=== PATIENT | male | born 1990 | race Caucasian/White ===

== ENCOUNTER 2024-04-22 14:45 | Emergency (ER) | payer BC, SELFPAY ==
[2024-04-22 14:46] VITALS: BP 138/84; PULSE 107; RESP 14; TEMP 36.6; O2SAT 98; BMI 42.7
--- NOTE | 2024-04-22 15:27 | ED.VIS.LOWEX ---
HPI History of Present Illness Chief Complaint: Lower Extremity Injury Narrative Narrative: 33-year-old male presenting with lower back, left hip and left femur pain. 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 He denies head injury or LOC. He states he was able to get up and walk but it was very painful. Patient is not on any blood thinners. Patient states that the pain that he feels starts in his lower back and he notes it is also in the left hip. When he moves his leg it radiates both medially and laterally. He denies numbness or tingling. PFSH PFSH Medical History no medical history Home Medications ?Medication ?Instructions ?Recorded ?Last Taken ?Type hydrocodone-acetaminophen 5-325mg 1 tab PO Q6H PRN PRN Pain 3 days 04/22/24 Unknown Rx 5mg-325mg #12 TABLETS Allergy/AdvReac Type Severity Reaction Status Date / Time No Known Allergies Allergy Verified 04/22/24 14:48 Surgical History no surgical history Social History Smoking Status: Never smoker ROS ROS ED Constitutional Constitutional ED: Denies chills, fever(s) or sweats Eyes Eyes: Denies blurry vision or change in vision ENT ENT ED: Denies ear pain or sore throat Cardiovascular Cardiovascular: Denies chest pain, palpitations or racing heartbeat Respiratory/Chest Respiratory/Chest: Denies cough, dyspnea or sputum Gastrointestinal Gastrointestinal: Denies abdominal pain, constipation, diarrhea, nausea or vomiting Genitourinary Genitourinary ED: Denies dysuria, hematuria or urinary frequency Musculoskeletal Musculoskeletal: Reports back pain and other Details: Right hip and leg pain ; Denies arthralgias, myalgias or neck pain Integumentary Denies abscess, Abrasions or rash Neurologic Neurologic: Denies headache(s), paresthesias or weakness Psychiatric Psychiatric: Denies anxiety, depression, suicidal ideation or suicidal thoughts Endocrine Endocrinology: Denies polydipsia or polyuria EXAM Physical Exam Const Vital Signs: 04/22/24 14:46 04/22/24 16:46 04/22/24 18:00 Temperature 98 F Temperature Source Temporal Pulse Rate 107 H 70 97 Respiratory Rate 14 17 17 Blood Pressure 138/84 H 132/68 H 144/80 H Blood Pressure Mean 102 89 101 Pulse Ox 98 99 99 Oxygen Delivery Method Room Air Room Air Room Air Positive well nourished General Appearance ED: NAD HEENT Reports moist mucous membranes Eyes PERRL Resp normal respiratory effort and no retractions Cardio regular rate and regular rhythm GI non-tender and non-distended Back/Spine Back/Spine Narrative: Tenderness to palpation of the lumbar spine midline at the level of L4-L5 without step-off or deformity. No bruising. Or rashes or abrasion. Extremity Extremity Narrative: There is tenderness to palpation noted on the left hip and gluteal region. Patient is able to flex his hip off the bed. From his side he is able to abduct his leg as well. There is tenderness of the greater trochanter as well as the mid thigh medially and laterally. Neuro oriented x3 and CN's II-XII intact bilaterally Sensorium / Orientation: alert Psych mental status grossly normal MDM MDM MDM Narrative Medical decision making narrative: 33-year-old male presenting with left hip pain. He also has pain in the lower back and femur area. He was able to ambulate. He states it was very painful. Differential includes lumbar spinal fracture, pelvic fracture, acetabular fracture, hip fracture, femur fracture. Patient fell from 4 and half feet onto the side of the truck and then an additional 5 feet to the ground. He is given Bayard for pain. Will obtain CT images of the lumbar spine, pelvis, hip, femur. CT of the lumbar spine, hip, femur all negative. Offered the patient crutches for home he declines. I will write prescription for Bayard for pain. Return precautions were discussed. Impression: 1. Fall 2. Lumbar contusion 3. left hip contusion Lab Data Attestation: I reviewed the patient's lab results. Radiography Diagnostic Testing: Clinical Impression(s) from Imaging Studies Lower Extremity CT 04/22/24 15:35 IMPRESSION: No acute bony abnormality or significant arthropathy. Electronically Signed: Sea Johnson MD at 17:53 EDT , Lumbar Spine CT 04/22/24 15:45 IMPRESSION: Unremarkable study. Electronically Signed: Sea Johnson MD at 18:08 EDT , Pelvis CT 04/22/24 15:45 IMPRESSION: Normal unenhanced CT of the pelvis. Electronically Signed: Dwight Green MD at 18:49 EDT , Discharge Plan Triage Chief Complaint: Lower Extremity Injury ED Provider: Joshua De La Vega Dx/Rx/DC Orders Instructions: ED Back Contusion, ED Hip Contusion Prescriptions: New hydrocodone-acetaminophen 5-325 mg tablet 1 tab PO Q6H PRN PRN (Reason: Pain) 3 Days Qty: 12 0RF Primary Care Provider: Carmelina Perla Referrals: Carmelina Perla PA [Primary Care Provider] - Print Language: Icelandic Disposition Disposition: Home, Self Care
[2024-04-22] MEDS: HYDROcodone Bitartrate/Apap 5/325 Tablet PO (15:32)
--- NOTE | 2024-04-22 15:35 | CT_ITS ---
CT LEFT LOWER EXTREMITY WITH 3-D IMAGING CLINICAL INDICATION: pain TECHNIQUE: Axial CT images of the LEFT lower extremity was performed without IV contrast material. Coronal and sagittal reformats were provided. The protocol utilizes one or more of the following dose reduction techniques: automated exposure control, adjustment of mA and/or kV according to patient size,and/or use of iterative reconstruction technique. RADIATION DOSAGE (If Supplied By Facility): CTDIvol = ( 30.50 ) mGy, DLP = ( 1709.51 ) mGycm COMPARISON: No relevant prior comparison study available FINDINGS: Bones: Osseous structures are normal without evidence of fracture or dislocation. No lytic or blastic osseous masses. Soft Tissues: The deep soft tissue structures are unremarkable. The superficial soft tissues are unremarkable without evidence of edema, hematoma, or foreign body. CT/Extremity Lower without Contra IMPRESSION: No acute bony abnormality or significant arthropathy. Electronically Signed: Sea Johnson MD at 17:53 EDT ,
--- NOTE | 2024-04-22 15:45 | CT_ITS ---
INDICATION: pain EXAMINATION: CT LUMBAR SPINE - CT Spine Lumbar W/O Contrast Injection TECHNIQUE: Helically acquired images were obtained of the lumbar spine. 2D reformats were reviewed. A radiation dose optimization technique was used for this scan. The protocol utilizes one or more of the following dose reduction techniques: automated exposure control, adjustment of mA and/or kV according to patient size,and/or use of iterative reconstruction technique. IV Contrast dosage and agent: None. RADIATION DOSAGE (If Supplied By Facility): CTDIvol = ( 33.30 ) mGy, DLP = ( 1142.26 ) mGycm COMPARISON: No relevant prior comparison study available FINDINGS: VERTEBRAE: No acute fracture. No discrete lytic or blastic abnormality observed. Normal alignment. DISCS and SPINAL CANAL: Disc heights are preserved. No significant stenosis. VISUALIZED ABDOMEN: Visualized abdominal aorta is not dilated. CT/Spine Lumbar without Contrast IMPRESSION: Unremarkable study. Electronically Signed: Sea Johnson MD at 18:08 EDT ,
--- NOTE | 2024-04-22 15:45 | CT_ITS ---
STUDY: CT PELVIS WITHOUT CONTRAST REASON FOR EXAM: Male, 33 years old. pain RADIATION DOSAGE (If Supplied By Facility): CTDIvol = ( 47.10 ) mGy, DLP = ( 1387.44 ) mGycm TECHNIQUE: Transaxial imaging of the pelvis was performed with oral contrast, and without intravenous administration of contrast material. Individualized dose optimization techniques were used for this CT. COMPARISON: None. FINDINGS: Normal urinary bladder. Normal visualized small intestine. Normal visualized colon. There is no pelvic fluid. There is no pelvic mass lesion or lymphadenopathy. Normal visualized pelvic arteries. Normal abdominal wall. Normal osseous structures. CT/Pelvis without IV Contrast IMPRESSION: Normal unenhanced CT of the pelvis. Electronically Signed: Dwight Green MD at 18:49 EDT ,
[2024-04-22 16:46] VITALS: BP 132/68; PULSE 70; RESP 17; O2SAT 99
[2024-04-22 18:00] VITALS: BP 144/80; PULSE 97; RESP 17; O2SAT 99
[2024-04-22 19:40] VITALS: BP 136/60; PULSE 85; RESP 18; TEMP 36.6; O2SAT 98
== END 2024-04-22 19:40 | disposition home or self-care (01) ==
PROVIDERS: Emergency Provider Student in an Organized Health Care Education/Training Program; PCP Physician Assistant; Visit Provider Student in an Organized Health Care Education/Training Program
DX: S30.0XXA Contusion of lower back and pelvis, initial encounter (principal); S70.02XA Contusion of left hip, initial encounter; W17.89XA Other fall from one level to another, initial encounter; Y93.9 Activity, unspecified; Y99.0 Civilian activity done for income or pay; Y92.9 Unspecified place or not applicable
CPT/HCPCS: 72131; 72192; 73700; 99282; Q9967